=== PATIENT | female | born 1985 | race African-American/Black ===

== ENCOUNTER 2017-05-23 17:17 | Emergency (ER) | payer SELFPAY ==
[~2017-05-23] VITALS: Ht 167.6 cm; Wt 82.0 kg
[2017-05-23 17:21] VITALS: BP 135/94
== END 2017-05-23 21:30 | disposition left against medical advice (07) ==
LOC: ER 17:45
DX: R53.1 Weakness (principal); Z53.21 Procedure and treatment not carried out due to patient leaving prior to being seen by health care provider